=== PATIENT | female | born 1990 | race Caucasian/White ===

== ENCOUNTER 2018-10-27 14:42 | Emergency (ER) | payer OTHER ==
[2018-10-27] MEDS ORDERED: NORMAL SALINE 1000 ML 1,000 ML IV ONE ×2 (15:03→22:18)
[2018-10-27] MEDS ORDERED: ONDANSETRON HCL INJ/PF 4 MG/2 ML SDV IV ONE ×2 (15:03→22:13)
[2018-10-27] MEDS ORDERED: KETOROLAC TROMETHAMINE INJ/PF 30 MG/1 ML SDV IV ONE (15:03)
--- NOTE | 2018-10-27 15:04 | ER Document Report ---
ED Medical Screen (RME) - General Chief Complaint: Flank Pain Stated Complaint: LEFT SIDE PAIN,NAUSEA,VOMITING Time Seen by Provider: 10/27/18 15:03 Mode of Arrival: Ambulatory Information source: Patient Notes: Patient is an otherwise healthy 28-year-old female presenting to the emergency department with complaints of left flank pain. Patient reports she had severe pain in the left flank area on Thursday evening. She states that she vomited x1 and the pain completely resolved. Patient reports that the pain was completely gone until today when it came back worse. She reports associated fever and chills. Denies any dysuria. Reports urinary frequency. Exam: Abdomen soft, nontender. Tenderness to the left flank area. I have greeted and performed a rapid initial assessment of this patient. A comprehensive ED assessment and evaluation of the patient, analysis of test results and completion of the medical decision making process will be conducted by additional ED providers. Dictation of this chart was performed using voice recognition software; therefore, there may be some unintended grammatical errors. TRAVEL OUTSIDE OF THE [place] IN LAST 30 DAYS: No - Related Data Allergies/Adverse Reactions: amoxicillin Allergy (Verified 10/27/18 14:43) Physical Exam - Vital signs Vitals: Temp Pulse Resp BP Pulse Ox 97.6 F 76 19 122/63 100 10/27/18 14:50 10/27/18 14:50 10/27/18 14:50 10/27/18 14:50 10/27/18 14:50 Course - Vital Signs Vital signs: Temp Pulse Resp BP Pulse Ox 97.6 F 76 19 122/63 100 10/27/18 14:50 10/27/18 14:50 10/27/18 14:50 10/27/18 14:50 10/27/18 14:50
[2018-10-27 16:13] LABS: ABSOLUTE LYMPHOCYTES (AUTO) 1.2 10^3/uL (0.5-4.7); ABSOLUTE MONOCYTES (AUTO) 0.4 10^3/uL (0.1-1.4); ABSOLUTE NEUT (AUTO) 10.1 10^3/uL (1.7-8.2); BASOPHILS % (AUTO) 0.2 % (0-2); EOSINOPHILS % (AUTO) 0.4 % (0-6); HEMATOCRIT 39.6 % (36.0-47.0); HEMOGLOBIN 13.1 g/dL (12.0-15.5); LYMPHOCYTES % (AUTO) 10.6 % (13-45); MEAN CORPUSCULAR HEMOGLOBIN 29.3 pg (27.0-33.4); MEAN CORPUSCULAR HGB CONC 33.2 g/dL (32.0-36.0); MEAN CORPUSCULAR VOLUME 88 fl (80-97); MONOCYTES % (AUTO) 3.3 % (3-13); PLATELET COUNT 269 10^3/uL (150-450); RED BLOOD COUNT 4.48 10^6/uL (3.72-5.28); RED CELL DISTRIBUTION WIDTH 13.7 % (11.5-14.0); SEGMENTED NEUTROPHILS % (AUTO) 85.5 % (42-78); TOTAL CELLS COUNTED % (AUTO) 100 %; WHITE BLOOD COUNT 11.8 10^3/uL (4.0-10.5)
[2018-10-27 16:17] LABS: APPEARANCE,URINE SLIGHTLY-CLOUDY; BILIRUBIN,URINE NEGATIVE (NEGATIVE); COLOR,URINE YELLOW; GLUCOSE, URINE NEGATIVE (NEGATIVE); KETONES,URINE 20 mg/dL (NEGATIVE); LEUKOCYTE ESTERASE,URINE NEGATIVE (NEGATIVE); NITRITE,URINE NEGATIVE (NEGATIVE); PROTEIN,URINE 30 mg/dL (NEGATIVE); UROBILINOGEN,URINE NEGATIVE mg/dL (<2.0)
[2018-10-27 16:34] LABS: ALANINE AMINOTRANSFERASE 26 U/L (9-52); ALBUMIN 5.3 g/dL (3.5-5.0); ALKALINE PHOSPHATASE 58 U/L (38-126); ANION GAP 11 (5-19); ASPARTATE AMINO TRANSFERASE 24 U/L (14-36); BILIRUBIN,DIRECT 0.3 mg/dL (0.0-0.4); BILIRUBIN,TOTAL 0.9 mg/dL (0.2-1.3); BLOOD UREA NITROGEN 12 mg/dL (7-20); CALCIUM 10.2 mg/dL (8.4-10.2); CARBON DIOXIDE 27 mmol/L (22-30); CHLORIDE 102 mmol/L (98-107); GLUCOSE 102 mg/dL (75-110); LIPASE 52.4 U/L (23-300); POTASSIUM 4.3 mmol/L (3.6-5.0); SODIUM 140.1 mmol/L (137-145); TOTAL PROTEIN 8.7 g/dL (6.3-8.2)
[2018-10-27] MEDS ORDERED: MORPHINE SULFATE 10 MG/ML INJ IV ONE ×2 (17:47→22:13)
--- NOTE | 2018-10-27 18:25 | RADIOLOGY REPORT (SQ) ---
EXAM DESCRIPTION: CT ABD/PELVIS NO ORAL OR IV COMPLETED DATE/TIME: 10/27/2018 6:01 pm REASON FOR STUDY: eval for renal stone R side COMPARISON: None. TECHNIQUE: CT scan of the abdomen and pelvis performed without intravenous or oral contrast. Images reviewed with lung, soft tissue, and bone windows. Reconstructed coronal and sagittal MPR images revi ewed. All images stored on PACS. All CT scanners at this facility use dose modulation, iterative reconstruction, and/or weight based d osing when appropriate to reduce radiation dose to as low as reasonably achievable (ALARA). [facility]: Dose Right [facility]: CareDose [facility]: Dose Right [facility]: Teradose 4D [facility]: [employer] RADIATION DOSE: CT Rad equipment meets quality standard of care and radiation dose reduction techniq ues were employed. CTDIvol: 6.1 mGy. DLP: 313 mGy-cm.mGy. LIMITATIONS: None. FINDINGS: LOWER CHEST: No significant findings. No nodules or infiltrates. NON-CONTRASTED LIVER, SPLEEN, ADRENALS: Evaluation limited by lack of IV contrast. No identified sign ificant masses. PANCREAS: No masses. No peripancreatic inflammatory changes. GALLBLADDER: No identified stones by CT criteria. No inflammatory changes to suggest cholecystitis. RIGHT KIDNEY AND URETER: No suspicious masses. Assessment limited by lack of IV contrast. Periphera l nephrolithiasis. No hydronephrosis or hydroureter. LEFT KIDNEY AND URETER: No suspicious masses. Assessment limited by lack of IV contrast. Peripheral nephrolithiasis. There is also a 3 mm calculus at the UV junction. Mild hydronephrosis. AORTA AND RETROPERITONEUM: No aneurysm. No retroperitoneal masses or adenopathy. BOWEL AND PERITONEAL CAVITY: No obvious masses or inflammatory changes. No free fluid. APPENDIX: Normal. PELVIS, BLADDER, AND ABDOMINAL WALL:No abnormal masses. No free fluid. Bladder normal. BONES: No significant findings. OTHER: No other significant finding. IMPRESSION: Bilateral nephrolithiasis. Mild obstructive uropathy on the left secondary to a 3 mm calculus at the UV junction. COMMENT: Quality ID # [id number]: Final reports with documentation of one or more dose reduction techniques (e.g., Automated exposure control, adjustment of the mA and/or kV according to patient size, use of iterative reconstruction technique) TECHNICAL DOCUMENTATION: JOB ID: [id number] [employer]- All Rights Reserved Reading location - IP/workstation name: [email or web address]
--- NOTE | 2018-10-27 22:24 | ER Document Report ---
ED General - General Chief Complaint: Flank Pain Stated Complaint: LEFT SIDE PAIN,NAUSEA,VOMITING Time Seen by Provider: 10/27/18 15:03 Primary Care Provider: SHELBY NIELSON MD [NO LOCAL MD] - Follow up as needed Mode of Arrival: Ambulatory Notes: Pleasant, healthy 28-year-old female with no medical problems presents to the emergency department with chief complaint of severe left flank pain, subjective fever, chills, vomiting. She said on Thursday she had some left flank pain Thursday evening, vomited and then felt better. She was in her usual state of health until today when she was developing severe left flank pain that was constant with associated nausea and vomiting. This when she decided to seek treatment in the emergency department. She denies any fevers currently, complains of chills with the pain, denies any shortness of breath or chest pain, denies any epigastric pain, states that the left flank pain radiates around her left side down to her suprapubic area. She complains of urinary frequency but denies dysuria or urgency. No history of kidney stones, no family history of kidney stones. TRAVEL OUTSIDE OF THE [place] IN LAST 30 DAYS: No - Related Data Allergies/Adverse Reactions: amoxicillin Allergy (Verified 10/27/18 14:43) Past Medical History - General Information source: Patient - Social History Smoking Status: Never Smoker Frequency of alcohol use: None Drug Abuse: None Family History: None Patient has suicidal ideation: No Patient has homicidal ideation: No Renal/ Medical History: Denies: Hx Peritoneal Dialysis Past Surgical History: Reports: Hx Oral Surgery - skin graft in mouth Review of Systems - Review of Systems Constitutional: See HPI EENT: No symptoms reported Cardiovascular: See HPI Respiratory: See HPI Gastrointestinal: See HPI Genitourinary: See HPI Female Genitourinary: See HPI Musculoskeletal: See HPI Skin: No symptoms reported Hematologic/Lymphatic: No symptoms reported Neurological/Psychological: No symptoms reported Physical Exam - Vital signs Vitals: Temp Pulse Resp BP Pulse Ox 97.6 F 76 19 122/63 100 10/27/18 14:50 10/27/18 14:50 10/27/18 14:50 10/27/18 14:50 10/27/18 14:50 - Notes Notes: PHYSICAL EXAMINATION: Reviewed vital signs and charting by RN GENERAL: Alert, interacts well. No acute distress. HEAD: Normocephalic, atraumatic. EYES: Pupils equal and round. Extraocular movements intact. ENT: Oral mucosa moist, tongue midline. NECK: Full range of motion. Trachea midline. LUNGS: Clear to auscultation bilaterally, no wheezes, rales, or rhonchi. No respiratory distress. HEART: Regular rate and rhythm. No murmur ABDOMEN: soft, non-tender. No distention. Bowel sounds present EXTREMITIES: Moves all 4 extremities spontaneously. No edema, No cyanosis. BACK: Left CVAT PSYCH: Normal affect, normal mood. SKIN: Warm, dry, normal turgor. No rashes or lesions noted. Course - Re-evaluation Re-evalutation: 10/27/18 22:21 Overall well-appearing, patient received Zofran 4 mg IV, Toradol 15 mg IV, morphine 4 mg IV, normal saline 1 L while in triage. She reported relief from that but the pain is starting to recur. CT abdomen was completed which showed bilateral nephrolithiasis with a left 3 mm obstructed stone at the UVJ. Urinalysis was negative for urinary tract infection so this does not represent an infected stone. Plan is expectant management, will prescribe Flomax and give her pain control at home. Currently she says her pain is better and I will give her another dose of morphine and Zofran. I will also give her 1 more liter of normal saline as she has ketones in urine. Upon reassessment she will be stable for discharge pending vitals and symptoms. 10/27/18 22:57 Patient states she is feeling better after getting the second dose of morphine. I am going to send her home with a prescription for morphine and Flomax. I will also give her a Zofran dispense pack. She is stable for discharge. - Vital Signs Vital signs: Temp Pulse Resp BP Pulse Ox 98.3 F 73 16 119/70 100 10/27/18 23:26 10/27/18 23:26 10/27/18 23:26 10/27/18 23:26 10/27/18 23:26 - Laboratory Result Diagrams: 10/27/18 15:50 10/27/18 15:50 Laboratory results interpreted by me: 10/27/18 10/27/18 10/27/18 15:35 15:50 15:50 WBC 11.8 H Seg Neutrophils % 85.5 H Lymphocytes % 10.6 L Absolute Neutrophils 10.1 H Total Protein 8.7 H Albumin 5.3 H Urine Protein 30 H Urine Ketones 20 H Urine Blood LARGE H Discharge - Discharge Clinical Impression: Kidney stone on left side Condition: Good Disposition: HOME, SELF-CARE Additional Instructions: Your symptoms should improve over the course of the next one week. If you con tinue to have pain for greater than one week or your pain is not controlled with the pain medications that you have been sent home with you need to return to the emergency department. Please also return if you develop fever, persistent vomiting, or any other symptoms that are concerning to you. You should take ibuprofen 600 mg every 6 hours and use the oral morphine as prescribed only for pain not controlled by ibuprofen. You are also been sent home with a medication called Flomax to help pass the stone. You've been given Zofran to assist with nausea. Please follow-up with urology in the next 2-3 days. Prescriptions: Morphine Sulfate [Morphine Ir 15 Mg Tablet] 15 mg PO Q4H PRN #15 tablet PRN Reason: Tamsulosin HCl [Flomax 0.4 mg Cap.sr] 0.4 mg PO DAILY #7 cap.sr.24h Referrals: SHELBY NIELSON MD [NO LOCAL MD] - Follow up as needed
[2018-10-27] MEDS ORDERED: ONDANSETRON ODT 4 MG TAB (6 TAB/ER DISP) PO PRN (22:57)
[2018-10-27] MEDS ORDERED: TAMSULOSIN HCL 0.4 MG CAP.SR.24H PO ONE (22:58)
[2018-10-27] MEDS ORDERED: HYDROCODONE/ACETAMINOPHEN 5-325 MG (6 TAB/ER DISP) PO PRN (22:58)
[2018-10-27 23:33] VITALS: BP 119/70
== END 2018-10-27 23:30 | disposition home or self-care (01) ==
LOC: ER 14:42
DX: N20.0 Calculus of kidney (principal); R10.9 Unspecified abdominal pain; R11.2 Nausea with vomiting, unspecified; R50.9 Fever, unspecified; R35.0 Frequency of micturition
CPT/HCPCS: 96376; 99284; 96361; 96374; 96375; 36415; 83690; 84703; 85025; 80053; 81001; 74176; J1885; J2270; J2405; J7030